=== PATIENT | female | born 1975 | race Two or more races ===

== ENCOUNTER 2018-08-17 15:24 | Emergency (ER) | payer MEDICAID ==
[~2018-08-17] VITALS: Ht 157.5 cm; Wt 84.7 kg
[2018-08-17 15:29] VITALS: BP 144/82; PULSE 99; RESP 14; Ht 157.5 cm; Wt 84.7 kg
[2018-08-17] MEDS ORDERED: KETOROLAC 60 MG INJ IM STA (16:14)
--- NOTE | 2018-08-17 16:39 | ERD ---
ER Documentation Chief Complaint Chief Complaint L-ARM PAIN SINCE YESTERDAY; DENIES INJURY HPI 43-year-old female who presents with pain and paresthesias in her left arm. She has had this for several years she states. No trauma. At times the pain radiates to her head and neck. She has not taken any medication for her symptoms. ROS All systems reviewed and are negative except as per history of present illness. Medications Home Meds Active Scripts Cyclobenzaprine Hcl* (Cyclobenzaprine Hcl*) 10 Mg Tablet, 10 MG PO Q8 PRN for MUSCLE SPASMS, #20 TAB Prov:LALO ANTOINE PA-C 08/17/18 Ibuprofen* (Motrin*) 800 Mg Tab, 800 MG PO Q6, #30 TAB Prov:LALO ANTOINE PA-C 08/17/18 Reported Medications [None] No Conflict Check 09/18/10 Allergies Allergies: Coded Allergies: No Known Allergies (Verified Allergy, Mild, 09/18/10) PMhx/Soc History of Surgery: Yes (ovarian removed, APPENDECTOMY) Anesthesia Reaction: No Hx Neurological Disorder: No Hx Respiratory Disorders: No Hx Cardiac Disorders: No Hx Psychiatric Problems: No Hx Miscellaneous Medical Probl: No Hx Alcohol Use: No Hx Substance Use: No Hx Tobacco Use: No FmHx Family History: No diabetes Physical Exam Vitals Vital Signs Date Temp Pulse Resp B/P (MAP) Pulse Ox O2 O2 Flow FiO2 Time Delivery Rate 08/17/18 98.0 99 14 144/82 98 15:29 (102) Physical Exam Const: No acute distress Head: Atraumatic Eyes: Normal Conjunctiva ENT: Normal External Ears, Nose and Mouth. Neck: Full range of motion. No meningismus. Resp: Clear to auscultation bilaterally Cardio: Regular rate and rhythm, no murmurs Upper Extremity -left Skin: No laceration, or evidence of external trauma Compartments: Soft Motor: Full active range of motion shoulder/elbow/wrist/hand Sensation: Intact shoulder/pinky/middle finger/thumb web space Bones: Nontender humerus/elbow/forearm/wrist/hand Snuffbox: Nontender Joints: No effusion Pulses/Perfusion: 2+ radial, Capillary refill < 2 seconds Results 24 hrs Laboratory Tests Test 08/17/18 16:26 08/17/18 16:29 Bedside Glucose 93 mg/dL POC Beta HCG, Qualitative NEGATIVE Current Medications Medications Dose Sig/Jane Start Time Status Last (Trade) Ordered Route PRN Stop Time Admin Dose Reason Admin Ketorolac 60 mg ONCE STAT 08/17/18 DC 08/17/18 Tromethamine IM 16:14 16:37 (Toradol) 08/17/18 16:15 Procedures/MDM 43-year-old female is here with chronic left arm pain and paresthesias. Her ex am is normal and she is neurovascularly intact. is negative. Accu- Chek within normal limits. She is given Toradol injection. Discharged with ibuprofen and Flexeril. Patient counseled regarding my diagnostic impression and care plan. Prior to discharge all questions answered. Pt agrees with treatment plan and understands strict return precautions. Pt is instructed to follow up with primary care provider within 24-48 hours. Precautionary instructions provided including instructions to return to the ER if not improving or for any worsening or changing symptoms or concerns. Departure Diagnosis: Primary Impression: Pain of left arm Additional Impression: Paresthesia of arm Condition: Stable LALO ANTOINE PA-C Aug 17, 2018 16:39
[2018-08-17] MEDS ORDERED: CYCL10TA7 PO (16:40)
[2018-08-17] MEDS ORDERED: IBUP800T48 PO (16:40)
== END 2018-08-17 16:58 | disposition home or self-care (01) ==
LOC: FTE 15:24
DX: M79.602 Pain in left arm (principal); R20.2 Paresthesia of skin
CPT/HCPCS: 81025; 82962; 96372; J1885; Z7502